=== PATIENT | female | born 1935 | race Caucasian/White ===

== ENCOUNTER 2016-06-23 09:26 | Inpatient (IN) ==
[2016-06-23] MEDS ORDERED: Ondansetron 4 MG/2 ML VIAL IV ONE ×2 (09:33→10:10)
[2016-06-23] MEDS ORDERED: *HR* Morphine 2 MG/ML SYRINGE IV ONE ×2 (09:33→10:10)
--- NOTE | 2016-06-23 09:43 | Emergency Department Note ---
Disposition Clinical Impression: Fracture, humerus closed, shaft Qualifiers: Encounter type: initial encounter Fracture morphology: transverse Fracture alignment: displaced Laterality: left Qualified Code(s): S42.322A - Displaced transverse fracture of shaft of humerus, left arm, initial encounter for closed fracture Disposition: Admitted As Inpatient Condition: Good Forms: ED Satisfaction Letter Upper Extremity HPI - General Chief Complaint: ED Extremity Injury, Upper Stated Complaint: LEFT ARM INJURY Time Seen by Provider: 06/23/16 09:33 Source: patient Mode of arrival: EMS Limitations: no limitations Nursing Notes Reviewed: Yes Vital Signs Reviewed: Yes - History of Present Illness Injury Location: Left: arm Onset (ago): Just [employer]RATIVE [employer]ISTANT Other Injuries: none Place: other ([facility]) Pain Scale: 3 Improves with: immobilization Worsens with: movement of extremity, Palpation Context: fall Associated symptoms: Reports: denies other symptoms Treatments prior to arrival: cold therapy, splint - Related Data Home Medications Medication Instructions Recorded Confirmed Amlodipine Besylate 5 mg PO 04/05/16 Aspirin [Lo-Dose Aspirin EC] 81 mg PO 04/05/16 BuPROPion XL (24 HR) [Wellbutrin 150 mg PO 04/05/16 XL] Calcium Crb,Cit/D3/Min34/Joleen 1 each PO 04/05/16 [Citracal + Bone Density Tablet] Cetirizine HCl [Zyrtec] 10 mg PO 04/05/16 Cholecalciferol (Vitamin D3) 1,000 unit PO 04/05/16 [Vitamin D3] Clotrimazole 1% CRM [Lotrimin 1%] 1 appl TP BID 04/05/16 04/05/16 Esomeprazole Magnesium [Nexium] 20 mg PO 04/05/16 FLUoxetine HCl [PROzac] 20 mg PO DAILY 04/05/16 04/05/16 Fenofibrate [Tricor] 145 mg PO DAILY 04/05/16 04/05/16 Fluconazole [Diflucan] 150 mg PO DAILY 04/05/16 04/05/16 Folic Acid 1 mg PO DAILY 04/05/16 04/05/16 InFLIXimab [Remicade] 04/05/16 Ipratropium [place] 15 ml NS 04/05/16 Losartan/Hydrochlorothiazide 1 each PO 04/05/16 [Hyzaar 100-12.5 Tablet] Methotrexate [Otrexup] 2.5 mg PO 04/05/16 MethylPREDNISolone [Medrol] 2 mg PO 04/05/16 Multivitamin [Multivitamins] 1 each PO 04/05/16 Potassium Chloride [Klor-Con] 20 meq PO 04/05/16 Solifenacin Succinate [Vesicare] 5 mg PO 04/05/16 Zolpidem [Ambien] 10 mg PO HS 04/05/16 04/05/16 Previous Rx's Medication Instructions Recorded HYDROcodone/Acet 5/325 mg [[place] 1 tab PO Q6H PRN #10 tab 04/05/16 5-325 mg] Allergies Allergy/AdvReac Type Severity Reaction Status Date / Time fluticasone [From Flonase] Allergy Nose Bleed Verified 11/07/14 11:29 Minocycline [From Minocin] Allergy Hives Verified 11/07/14 11:29 Sulfa (Sulfonamide Allergy Hives Verified 11/07/14 11:29 Antibiotics) trazodone [From Desyrel] Allergy Hives Verified 11/07/14 11:29 alendronate sodium AdvReac Gastrointestinal Verified 11/07/14 11:29 [From Fosamax] Upset celecoxib [From Celebrex] AdvReac Anxiety Verified 11/07/14 11:29 cyanocobalamin (vitamin B12) AdvReac Gastrointestinal Verified 11/07/14 11:29 [From Foltx] Upset folic acid [From Foltx] AdvReac Gastrointestinal Verified 11/07/14 11:29 Upset levomefolate calcium AdvReac Gastrointestinal Verified 11/07/14 11:29 [From Foltx] Upset pyridoxine [From Foltx] AdvReac Gastrointestinal Verified 11/07/14 11:29 Upset All systems ED: reviewed and negative except as stated. Constitutional: Denies: fever, chills Respiratory: Denies: cough Gastrointestinal: Denies: nausea, vomiting Past Medical History - Past Medical History Source: patient, old records reviewed, nursing notes reviewed Medical history: Reports: arthritis, GERD, hyperlipidemia, hypertension Surgical history: Reports: non-contributory Psychiatric history: Reports: anxiety - Social History Smoking Status: Never smoker Smokeless Tobacco Status: No Alcohol use: Reports: rarely Drug use: Reports: none Physical Exam - General Limitations: no limitations General appearance: alert, in no apparent distress - Head Head exam: atraumatic, normocephalic, normal inspection - Eye Eye exam: Present: normal appearance, PERRL, EOMI - Expanded Eye Exam Pupils: Left: reactive - ENT ENT exam: normal exam, normal oropharynx, mucous membranes moist - Expanded ENT Exam External ear exam: Present: normal external inspection Mouth exam: Present: normal external inspection Teeth exam: Present: normal inspection Throat exam: Present: normal inspection - Neck Neck exam: Present: normal inspection, full ROM, trachea midline - Chest Chest inspection: Present: normal inspection, symmetric chest wall rise - Respiratory Respiratory exam: Present: normal lung sounds bilaterally - Cardiovascular Cardiovascular exam: Present: regular rate, normal rhythm, normal heart sounds - Abdominal Exam Abdominal exam: Present: soft, Non-Tender. Absent: tenderness, distention, guarding, rebound, rigidity - Extremities Exam Extremities exam: Present: normal inspection, full ROM. Absent: tenderness, pedal edema - Expanded Upper Extremity Exam Shoulder exam: Present: normal inspection, full ROM Arm exam: Present: tenderness, swelling, deformity (left humerus) Elbow exam: Present: normal inspection, full ROM Forearm/Wrist exam: Present: normal inspection, full ROM Hand exam: Present: normal inspection, full ROM Vascular exam: Normal: capillary refill, radial pulse - Expanded Lower Extremity Exam Hip/Pelvis exam: Present: normal inspection, full ROM Upper leg exam: Present: normal inspection, full ROM Knee exam: Present: normal inspection, full ROM Lower leg exam: Present: normal inspection, full ROM Ankle exam: Present: normal inspection, full ROM Foot/toe exam: Present: normal inspection, full ROM Neurovascular/Tendon exam: Absent: motor deficit, sensory deficit, tendon deficit - Back Exam Back exam: Present: normal inspection, full ROM. Absent: tenderness - Neurological Exam Neurological exam: Present: alert, oriented X3 - Expanded Neurological Exam Patient oriented to: Present: person, place, time Coma Scale Eye Opening: Spontaneous Coma Scale Motor Response: Obeys Commands Coma Scale Verbal Response: Oriented Coma Scale Total: 15 - Psychiatric Psychiatric exam: Present: normal affect, normal mood - Skin Skin exam: Present: warm, dry, intact, normal color Course Vital Signs Temperature 98.0 F 06/23/16 09:28 Pulse Rate 68 06/23/16 09:28 Respiratory Rate 18 06/23/16 09:28 Blood Pressure 138/63 06/23/16 09:28 O2 Sat by Pulse Oximetry 99 06/23/16 09:28 Temperature 98.0 F 06/23/16 09:28 Pulse Rate 69 06/23/16 10:17 Respiratory Rate 16 06/23/16 10:17 Blood Pressure 139/74 06/23/16 10:17 O2 Sat by Pulse Oximetry 98 06/23/16 10:17 Oxygen Delivery Oxygen Delivery Room Air Extremity Injury, Upper - Differential Diagnosis Differential Diagnosis: Likely: sprain and strain of wrist, fracture, dislocation, foreign body - Medical Records Medical records reviewed: Yes I reviewed the patient's medical records. - Radiology Data Radiology results reviewed: Yes I reviewed the patient's radiology results.
[2016-06-23 11:05] LABS: Basophils % 0.4 %; Eosinophils # 0.1 K/mcL (0.0-0.6); Eosinophils % 1.1 %; Hematocrit 33.2 % (35.3-44.9); Hemoglobin 10.6 g/dL (11.5-15.4); Immature Granulocytes % 0.5 % (0-4); Immature Platelets 3.4 % (1.1-6.1); Lymphocytes # 1.3 K/mcL (0.6-4.6); Lymphocytes % 12.8 %; Mean Corpuscular HGB Conc 31.9 g/dL (31.6-35.5); Mean Corpuscular Hemoglobin 31.4 pg (28.0-33.3); Mean Corpuscular Volume 98.2 fL (83.0-100.0); Mean Platelet Volume 10.1 fL (9.4-12.4); Monocytes # 0.9 K/mcL (0.0-1.3); Monocytes % 8.3 %; Neutrophils # 7.8 K/mcL (1.6-8.9); Platelet Count 186 K/mcL (140-400); Red Blood Count 3.38 M/mcL (3.82-4.97); Red Cell Distribution Width 13.7 % (11.5-14.5); Segmented Neutrophils % 76.9 %
[2016-06-23 11:13] LABS: Prothrombin Time 10.5 Seconds (9.4-12.1)
[2016-06-23 11:16] LABS: Activated Partial Thrombo Time 25.6 Seconds (26.0-36.0)
[2016-06-23 11:18] LABS: Calcium 8.7 mg/dL (8.6-10.8); Potassium 4.1 mEq/L (3.5-4.5)
[2016-06-23] MEDS ORDERED: Naloxone 0.4 MG/ML INJ IVP PRN (11:52)
[2016-06-23] MEDS ORDERED: MOM Conc 10 ML UD.LIQ PO PRN (11:52)
[2016-06-23] MEDS ORDERED: Ondansetron 4 MG/2 ML VIAL IVP PRN (11:52)
[2016-06-23] MEDS ORDERED: Mag Hydrox/Al Hydrox/Simeth 30 ML UDC PO PRN (11:52)
[2016-06-23] MEDS: 0.9 % Sodium Chloride 1,000 ML IVC SCH ×2 (12:00→16:39)
--- NOTE | 2016-06-23 13:34 | Internal Med History&Physical ---
Date of Encounter: 06/23/16 Time of Encounter: 13:00 Assessment and Plan (1) Fracture, humerus closed, shaft Current visit: Yes Status: Acute Pt with acute fracture s/p fall - no LOC. Admit. Ortho consult. Pain control. NPO midnight for planned OR tomorrow. Pt is moderate (immunocompromised, RA) but acceptable risk for a moderate risk surgery. Qualifiers: Encounter type: initial encounter Fracture morphology: transverse Fracture alignment: displaced Laterality: left Qualified Code(s): S42.322A - Displaced transverse fracture of shaft of humerus, left arm, initial encounter for closed fracture (2) Rheumatoid arthritis Current visit: Yes Status: Chronic Pt is immunocompromised on MTX and Remicade. Continue home PO meds at this time. Qualifiers: Rheumatoid arthritis location: multiple sites Rheumatoid factor presence: unspecified presence Qualified Code(s): M06.9 - Rheumatoid arthritis, unspecified (3) Immunocompromised state Current visit: Yes Status: Chronic Related to immunosuppressive drugs (4) HTN (hypertension) Current visit: Yes Status: Acute Continue home PO meds and monitor. Qualifiers: Hypertension type: essential hypertension Qualified Code(s): I10 - Essential (primary) hypertension (5) Dysphagia Current visit: Yes Status: Chronic Most likely related to esophageal stricture or dysmotility. Has had dilatation before. Monitor for post op issues. Qualifiers: Dysphagia type: esophageal phase Qualified Code(s): R13.14 - Dysphagia, pharyngoesophageal phase (6) CKD (chronic kidney disease) stage 3, GFR 30-59 ml/min Current visit: Yes Status: Chronic Monitor renal function and avoid nephrotoxins (7) GERD with esophagitis Current visit: Yes Status: Chronic Continue home meds (8) Anemia, chronic disease Current visit: Yes Status: Chronic Monitor H/H. (9) HLD (hyperlipidemia) Current visit: Yes Status: Chronic Continue home meds Qualifiers: Hyperlipidemia type: mixed hyperlipidemia Qualified Code(s): E78.2 - Mixed hyperlipidemia Internal Medicine - H&P: HPI Chief complaint: Arm pain s/p fall Admitted From: Emergency Dept Plans for Post Hospital Care: Home History of present illness: Ms. Gudino is a 81 year old female with hx of rheumatoid arthritis brought to ED by EMS after a fall. She was going up the steps at [employer] and missed the top step and fell on her L side. She had pain in her L arm and was found to have a humeral fracture. Denies LOC or any other symptoms. No palpitations or near syncope. Currently her only issue is pain is her arm and slight pain in her L sacroiliac area. She denies chest pain or dyspnea with exertion. Says she felt like she had a TIA a few weeks ago - describes as a fleeting feeling in her head with no associated neurologic symptoms otherwise. She does take baby ASA daily. No hx of cardiac disease or LA. Does have HTN but says well controlled. Has had multiple surgeries in the past with no issues. Past Med Surg Social Fam HX - Past Medical History Attestation: Yes The following information was validated with the patient. Source: patient Medical history: arthritis, GERD, hyperlipidemia, hypertension, RA, renal disease (CKD 3), thyroid disease (goiter) Psychiatric history: anxiety, depression - Past Surgical History Surgical History: cholecystectomy, hip replacement, hysterectomy, orthopedic, other, other (Many orthopedic surgeries; tonsillectomy; esophageal dilatation) - Social History Smoking Status: Never smoker Smokeless Tobacco Status: No Alcohol use: rarely Drug use: none - Family History Mother Living Status: Hx Family Cardiac Disorders: Yes Hx Family Endocrine Disorder: Yes (DM) Father Living Status: Hx Family Cancer: Yes (kidney?) Brother Living Status: Still Living Hx Family Cardiac Disorders: Yes Hx Family Endocrine Disorder: Yes (DM) Internal Medicine - H&P: Meds Amlodipine Besylate 5 mg PO DAILY 04/05/16 [History] Aspirin [Lo-Dose Aspirin EC] 81 mg PO DAILY 04/05/16 [History] BuPROPion XL (24 HR) [Wellbutrin XL] 150 mg PO DAILY 04/05/16 [History] Calcium Crb,Cit/D3/Min34/Joleen [Citracal + Bone Density Tablet] 1 tab PO DAILY 04/05/16 [History] Cholecalciferol (Vitamin D3) [Vitamin D3] 3,000 unit PO DAILY 04/05/16 [History] Esomeprazole Magnesium [Nexium] 20 mg PO BID 04/05/16 [History] FLUoxetine HCl [PROzac] 20 mg PO BID 04/05/16 [History] Fenofibrate [Tricor] 145 mg PO DAILY 04/05/16 [History] Folic Acid 1 mg PO DAILY 04/05/16 [History] InFLIXimab [Remicade] 100 mg IV Q8W 04/05/16 [History] Methotrexate [Otrexup] 2.5 mg PO AD 04/05/16 [History] MethylPREDNISolone [Medrol] 2 mg PO DAILY 04/05/16 [History] Multivitamin [Multivitamins] 1 cap PO DAILY 04/05/16 [History] Potassium Chloride [Klor-Con] 20 meq PO DAILY 04/05/16 [History] Solifenacin Succinate [Vesicare] 5 mg PO DAILY 04/05/16 [History] Zolpidem [Ambien] 10 mg PO HS 04/05/16 [History] Losartan/Hydrochlorothiazide [Hyzaar 100-25 Tablet] 1 tab PO DAILY 06/23/16 [ History] Allergies fluticasone [From Flonase] Allergy (Verified 11/07/14 11:29) Nose Bleed Minocycline [From Minocin] Allergy (Verified 11/07/14 11:29) Hives Sulfa (Sulfonamide Antibiotics) Allergy (Verified 11/07/14 11:29) Hives trazodone [From Desyrel] Allergy (Verified 11/07/14 11:29) Hives alendronate sodium [From Fosamax] Adverse Reaction (Verified 11/07/14 11:29) Gastrointestinal Upset celecoxib [From Celebrex] Adverse Reaction (Verified 11/07/14 11:29) Anxiety cyanocobalamin (vitamin B12) [From Foltx] Adverse Reaction (Verified 11/07/14 11 :29) Gastrointestinal Upset folic acid [From Foltx] Adverse Reaction (Verified 11/07/14 11:29) Gastrointestinal Upset levomefolate calcium [From Foltx] Adverse Reaction (Verified 11/07/14 11:29) Gastrointestinal Upset pyridoxine [From Foltx] Adverse Reaction (Verified 11/07/14 11:29) Gastrointestinal Upset All Systems PM: A 10-system review of systems was performed and is negative for pertinent findings except as documented above in the HPI. - Constitutional Constitutional: falls, no chills, no fatigue - EENT Eyes: no blurry vision, no dry eye, no loss of vision Nose, mouth and throat: no dry mouth, no mouth lesions - Cardiovascular Cardiovascular ROS IM: no chest pain, no dyspnea, no dyspnea on exertion, no edema, no irregular heart rhythm, no orthopnea, no palpitations - Respiratory Respiratory: no cough, no dyspnea, no hemoptysis, no dyspnea on exertion, no wheezing - Gastrointestinal Gastrointestinal: dysphagia, no abdominal pain, no constipation, no hematemesis , no hematochezia, no melena - Genitourinary Genitourinary: no difficulty urinating, no dysuria, no urinary frequency, no urinary urgency - Musculoskeletal Musculoskeletal ROS IM: joint swelling, limited range of motion, no arthralgias - Integumentary Integumentary IM: no erythema, no rash - Neurological Neurological ROS: disequilibrium (Transient episode), no abnormal gait, no memory loss, no numbness, no paresthesias - Psychiatric Psychiatric: no anxiety, no depression - Endocrine Endocrine IM: no flushing, no heat intolerance - Hematologic/Lymphatic Hematologic/Lymphatic: no easy bleeding - Allergic/Immunologic Allergic/Immunologic: no itchy eyes, no wheezing - Constitutional Vitals: Temp Pulse Resp BP Pulse Ox 97.7 F 69 18 141/76 98 06/23/16 12:03 06/23/16 10:17 06/23/16 12:03 06/23/16 12:03 06/23/16 10:17 General appearance: Present: cooperative, A&O X 3, pleasant, answers questions appropriately - Head Head exam: Present: atraumatic, normocephalic - Eye Eye exam: Present: EOMI, normal appearance, PERRL, conjuntiva pink - ENT ENT exam: Present: mucous membranes moist - Neck Neck exam general surgery: Present: supple. Absent: lymphadenopathy - Respiratory Respiratory exam: Present: decreased breath sounds, CTAB. Absent: rhonchi, wheezes - Cardiovascular Cardiovascular exam: Present: RRR. Absent: +S4, systolic murmur - GI/Abdominal GI/Abdominal exam: Present: soft. Absent: tenderness - Extremities Exam Extremities exam: Present: warm (Evidence of RA; LUE in sling. Pulse present) - Neurological Exam Neurological exam: Present: alert, CN II-XII intact, oriented X3, no focal deficits - Psychiatric Psychiatric exam: Present: normal affect, normal mood - Skin Skin exam: Present: dry, warm. Absent: rash Internal Med - H&P Results - Labs CBC & Chem 7: 06/23/16 10:48 06/23/16 10:48
[2016-06-23] MEDS: *HR* Morphine 2 MG/ML SYRINGE IVP PRN ×2 (13:54→18:57)
[2016-06-23] MEDS: Acetaminophen 325 MG TABLET PO PRN ×2 (16:09→22:16)
[2016-06-24] MEDS: *HR* Morphine 2 MG/ML SYRINGE IVP PRN ×4 (00:12→15:13)
[2016-06-24] MEDS: 0.9 % Sodium Chloride 1,000 ML IVC SCH ×4 (01:00→22:04)
[2016-06-24 05:35] LABS: Hemoglobin 9.8 g/dL (11.5-15.4); Mean Corpuscular HGB Conc 32.7 g/dL (31.6-35.5); Mean Corpuscular Hemoglobin 31.9 pg (28.0-33.3); Mean Corpuscular Volume 97.7 fL (83.0-100.0); Mean Platelet Volume 10.4 fL (9.4-12.4); Platelet Count 170 K/mcL (140-400); Red Blood Count 3.07 M/mcL (3.82-4.97); Red Cell Distribution Width 13.8 % (11.5-14.5)
[2016-06-24 05:48] LABS: Magnesium 1.4 mg/dL (1.6-2.6)
[2016-06-24] MEDS ORDERED: *HR* Enoxaparin 30 MG/0.3 ML SYRINGE SQ SCH (06:00)
--- NOTE | 2016-06-24 06:22 | Electrocardiograph Report ---
[place] [id number] Test Date: 2016-06-23 Pat Name: Cheryle Gudino Department: 103 Room: 3A11 Gender: F [employer]o Erector: [place] : 1935 Requested By: Mello Hidalgo Order Number: [id number] Reading MD: Randal Bliss MD Measurements Intervals [place] Rate: 85 P: 37 CO: 195 QRS: -25 QRSD: 103 T: 0 QT: 348 QTc: 390 Interpretive Statements SINUS RHYTHM LOW QRS VOLTAGE IN PRECORDIAL LEADS MODERATE VOLTAGE CRITERIA FOR LVH Poor R wave progression Electronically Signed On 06-24-2016 6:20:58 EDT by Randal Bliss MD
--- NOTE | 2016-06-24 10:01 | Internal Med Progress Note ---
Date of Encounter: 06/24/16 Time of Encounter: 08:15 - Assessment and plan (1) Fracture, humerus closed, shaft Current Visit: Yes Status: Acute Assessment and plan: Awaiting orthopedics evaluation. Possible surgery. Continue supportive care. Receiving intravenous morphine for pain. Moderate risk for complications. DVT prophylaxis with Lovenox Qualifiers: Encounter type: initial encounter Fracture morphology: transverse Fracture alignment: displaced Laterality: left Qualified Code(s): S42.322A - Displaced transverse fracture of shaft of humerus, left arm, initial encounter for closed fracture (2) Rheumatoid arthritis Current Visit: Yes Status: Chronic Assessment and plan: Will resume home medications for this condition. Patient is on Medrol, methotrexate Qualifiers: Rheumatoid arthritis location: multiple sites Rheumatoid factor presence: unspecified presence Qualified Code(s): M06.9 - Rheumatoid arthritis, unspecified (3) HTN (hypertension) Current Visit: Yes Status: Chronic Assessment and plan: Blood pressure is well controlled Qualifiers: Hypertension type: essential hypertension Qualified Code(s): I10 - Essential (primary) hypertension (4) Dysphagia Current Visit: Yes Status: Chronic Assessment and plan: Currently nothing by mouth for possible surgery. Reevaluate when patient is able to eat Qualifiers: Dysphagia type: esophageal phase Qualified Code(s): R13.14 - Dysphagia, pharyngoesophageal phase (5) CKD (chronic kidney disease) stage 3, GFR 30-59 ml/min Current Visit: Yes Status: Chronic Assessment and plan: GFR is at baseline. Avoid nephrotoxic agents (6) GERD with esophagitis Current Visit: Yes Status: Chronic Assessment and plan: Continue Prilosec (7) Anemia, chronic disease Current Visit: Yes Status: Chronic Assessment and plan: Hemoglobin 9.8 today. We will monitor closely and transfuse if necessary. - Subjective Interval history: Patient is feeling better today. Continues to have pain in her left upper extremity. This is controlled when she receives pain medications. Awaiting evaluation by orthopedics and possible surgery later today. - Constitutional Vitals: Temp Pulse Resp BP Pulse Ox 98.6 F 75 16 117/71 97 06/24/16 07:56 06/24/16 07:56 06/24/16 07:56 06/24/16 07:56 06/24/16 07:56 General appearance: Present: cooperative, mild distress, A&O X 3, pleasant, answers questions appropriately - Respiratory Respiratory exam: Present: CTAB. Absent: accessory muscle use, rales, rhonchi, wheezes - Cardiovascular Cardiovascular exam: Present: RRR, +S1, +S2. Absent: diastolic murmur, gallop, rubs, systolic murmur - GI/Abdominal GI/Abdominal exam: Present: normal bowel sounds, soft, no peritoneal signs. Absent: distended, tenderness - Extremities Exam Extremities exam: Present: warm, radial pulses palpable and symetrical. Absent : calf tenderness, cyanotic, pedal edema Additional comments: Left upper extremity in sling. - Neurological Exam Neurological exam: Present: alert, oriented X3, no focal deficits. Absent: facial droop, speech deficit - Skin Skin exam: Present: dry, intact Internal Medicine: Result - Labs CBC & Chem 7: 06/24/16 04:04 06/24/16 04:04 Labs: Short CBC 06/24/16 Range/Units 04:04 WBC 9.5 (4.3-11.1) K/mcL Hgb 9.8 L (11.5-15.4) g/dL Hct 30.0 L (35.3-44.9) % Plt Count 170 (140-400) K/mcL BMP 06/24/16 04:04 Sodium 136 Potassium 4.0 Chloride 106 Carbon Dioxide 21 BUN 25 H Creatinine 1.20 H Glucose 111 H Calcium 8.0 L - ABG Interpretation ABG results: PT/INR, D-dimer PT 10.5 Seconds (9.4-12.1) 06/23/16 10:48 - VTE Documentation of Mechanical Device: Graduated compression elastic hosiery Consult Discharge Plan - Plan Referrals: Cally Browne MD [Primary Care Provider] - - Attending Attestation This document has been at least partially created by [employer] recognition technology by Dr. Cueto. Errors in grammar, wording or other phrases may exist. If errors are found after the documentation is signed, they will be addressed individually in the addendum section of this document when appropriate.
[2016-06-24] MEDS ORDERED: *HR* Methotrexate 2.5 MG TABLET PO SCH ×2 (10:15→20:03)
--- NOTE | 2016-06-24 14:18 | Anesthesia Evaluation PreOp ---
Date of Encounter: 06/24/16 Time of Encounter: 14:16 - Past History Planned Operation: orif l humerus Cardiac History: HTN, Hyperlipidemia, Other (echo 11/05: ef 65, nl rv. 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: TIA (6 ,pd shp), Other (anxiety/depression) Other Medical History: Renal (ckd), Thyroid (goiter), GERD, Other (RA, dysphagia ) Anesthesia History: No Prior Anesthetic Complications, Past Anesthesia ( cholecyst, gina, hysterect, tonsils, egd, *many ortho procedures) Alcohol Use: rarely Drug use: none Medications and Allergies Amlodipine Besylate 5 mg PO DAILY 04/05/16 [History] Aspirin [Lo-Dose Aspirin EC] 81 mg PO DAILY 04/05/16 [History] BuPROPion XL (24 HR) [Wellbutrin XL] 150 mg PO DAILY 04/05/16 [History] Calcium Crb,Cit/D3/Min34/Joleen [Citracal + Bone Density Tablet] 1 tab PO DAILY 04/05/16 [History] Cholecalciferol (Vitamin D3) [Vitamin D3] 3,000 unit PO DAILY 04/05/16 [History] Esomeprazole Magnesium [Nexium] 20 mg PO BID 04/05/16 [History] FLUoxetine HCl [PROzac] 20 mg PO BID 04/05/16 [History] Fenofibrate [Tricor] 145 mg PO DAILY 04/05/16 [History] Folic Acid 1 mg PO DAILY 04/05/16 [History] InFLIXimab [Remicade] 100 mg IV Q8W 04/05/16 [History] Methotrexate [Otrexup] 2.5 mg PO AD 04/05/16 [History] MethylPREDNISolone [Medrol] 2 mg PO DAILY 04/05/16 [History] Multivitamin [Multivitamins] 1 cap PO DAILY 04/05/16 [History] Potassium Chloride [Klor-Con] 20 meq PO DAILY 04/05/16 [History] Solifenacin Succinate [Vesicare] 5 mg PO DAILY 04/05/16 [History] Zolpidem [Ambien] 10 mg PO HS 04/05/16 [History] Losartan/Hydrochlorothiazide [Hyzaar 100-25 Tablet] 1 tab PO DAILY 06/23/16 [ History] Allergies fluticasone [From Flonase] Allergy (Verified 11/07/14 11:29) Nose Bleed Minocycline [From Minocin] Allergy (Verified 11/07/14 11:29) Hives Sulfa (Sulfonamide Antibiotics) Allergy (Verified 11/07/14 11:29) Hives trazodone [From Desyrel] Allergy (Verified 11/07/14 11:29) Hives alendronate sodium [From Fosamax] Adverse Reaction (Verified 11/07/14 11:29) Gastrointestinal Upset celecoxib [From Celebrex] Adverse Reaction (Verified 11/07/14 11:29) Anxiety cyanocobalamin (vitamin B12) [From Foltx] Adverse Reaction (Verified 11/07/14 11 :29) Gastrointestinal Upset folic acid [From Foltx] Adverse Reaction (Verified 11/07/14 11:29) Gastrointestinal Upset levomefolate calcium [From Foltx] Adverse Reaction (Verified 11/07/14 11:29) Gastrointestinal Upset pyridoxine [From Foltx] Adverse Reaction (Verified 11/07/14 11:29) Gastrointestinal Upset - Meds/Allergy Pre-op Review Medications Reviewed: Yes Allergies Reviewed: Yes Beta Blockers on Current Med List: No Anesthesia Results - Labs 06/24/16 04:04 06/24/16 04:04 - Imaging EKG: report reviewed (sr) Anesthesia Exam Vital Signs/O2 Sat/Glucose, Most Current Temp Pulse Resp BP Pulse Ox 06/24/16 11:00 98.4 F 75 16 106/51 95 Height: 1.7 Weight: 95 NPO (# of Hours): >8 - HEENT Pupil (Motor): Pupils equal, EOMI Mallampati: II Teeth: Edentulous Oral Opening: Greater than 3 - [employer] UP OPERATOR LOC: Oriented [employer] SET UP OPERATOR Motor: Normal RUE, Normal LUE, Normal RLE, Normal LLE, Normal Face [employer] OPERATOR Sensory: Normal: RUE, LUE, RLE, LLE, Face - Cardiac Rhythm: Regular Murmur: None - Pulmonary Breath Sounds: bilateral Clear Respiratory Effort: Symmetrical Anesthesia Assess/Plan ASA Score: 3 Modified Bradley Scale for Level of Consciousness: Cooperative, oriented, and tranquil Anesthetic Plan: General, Regional Monitoring Plan: Standard Monitors Recovery Plan: PACU
[2016-06-24] MEDS ORDERED: *HR* Midazolam HCl 2 MG/2 ML VIAL ONE (16:58)
--- NOTE | 2016-06-24 17:14 | Anesthesia Procedures ---
Date of Encounter: 06/24/16 Time of Encounter: 17:12 Procedures: Anesthesia - Nerve Block Procedure Date: 06/24/16 Time: 17:13 Allergies/Adv Reactions: see chart for full details Pre-op Diagnosis: L humerus fx Surgical Procedure: L humerus orif Checklist: Correct Patient Identifier, Correct procedure, History checked Correct side: Left Blood Thinner: No Monitor Applied: EKG, BP, Pulse Oximetry Supplemental Oxygen via Nasal Cannula (L/min): 2 Sedation: Versed (mg): 2 Indication: Primary Anesthesia Block Type: Supraclavicular (20), Other (scp/icb 5/5) Catheter placed: No Sterile Technique: Yes Ultrasound used: Yes Anatomy identified: Yes Visual spread of Local: Yes Neuro Stimulation: No Blood on Needle Aspiration: No Smooth Injection of Local: Yes Pain with Injection of Local: No Prep: Chlorhexadine Needle: 22 x 50 mm Stimuplex Local: Other (0.5% bupivicaine) Volume (cc): 30 Number of Attempts: 1 Complications: None/effective block Vitals: see rn note
[2016-06-24] MEDS ORDERED: Propofol 500 MG/50 ML INFUS..BTL ONE (18:03)
[2016-06-24] MEDS ORDERED: *HR* Propofol 200 MG/20 ML VIAL IVP ONE (18:13)
[2016-06-24] MEDS ORDERED: Lidocaine -MPF 2% 2 ML VIAL ONE (18:13)
[2016-06-24] MEDS ORDERED: *HR* Phenylephrine 10 MG/ML VIAL ONE (18:44)
--- NOTE | 2016-06-24 18:53 | Orthopedic Operative Note ---
Date of procedure: 06/24/16 Pre-op diagnosis: Displaced left humeral shaft fracture Post-op diagnosis: same Procedure: Procedure: Left open reduction internal fixation Humerus Estimated blood loss: 50 cc Hardware: Synthes 6 hole narrow Large Frag 4.5 LCDCP locking Plate, 3 4.5 cortical screws, 3 5.0 Locking screws Operative procedure: The patient was brought to the operating room and placed on the operating room table. After general anesthesia was administered the operative arm was prepped and draped in the sterile surgical fashion The patient received IV antibiotics prior to skin incision. A standard anterior lateral approach is made to the humerus, the incision is made to the skin and subcutaneous tissue. Hemostasis was obtained with Bovie cautery. Using careful blunt dissection the interval between the brachialis and the brachial radialis was developed. The radial nerve was identified and protected. The brachialis was split and the fracture site was exposed. The fracture was irrigated of fracture hematoma. Fracture was reduced and held in place with bone holding forceps. A 6-hole narrow 4.5 LCDCP locking plate was approximated to the anterior lateral surface, it was fixed initially compression on either side of the fracture. After which fixation was completed with a combination of compression and locking screws. Rec visualization of the hardware was found to be acceptable as well as the reduction. This was confirmed with [place] B.. The wound was irrigated and the interval was closed with a running #1 PDS suture. The subcutaneous tissues irrigated and closed deep with #1 PDS suture superficially with 0 PDS suture and skin was closed with jumana. The patient was placed in a sterile dressing, posterior splint. The patient was extubated, and then transferred to the recovery room in stable condition. Anesthesia: GETA Surgeon: Abdelrahman Catalan Condition: stable Disposition: PACU
--- NOTE | 2016-06-24 19:42 | Orthopedic Consult Note ---
Date of Encounter: 06/24/16 Time of Encounter: 12:30 Assessment and Plan (1) Fracture, humerus closed, shaft Current Visit: Yes Status: Acute Patient sustained a mid-shaft left humerus fracture after a fall on Friday. She is NV intact distally - Radial nerve sensation and motor skills intact. Surgical optimization needed. Consent reviewed, plan for a Left Humerus ORIF today with . NWB to LUE. Continue in brace. Continue with pain control. NPO has reviewed and agrees with this plan. Qualifiers: Encounter type: initial encounter Fracture morphology: transverse Fracture alignment: displaced Laterality: left Qualified Code(s): S42.322A - Displaced transverse fracture of shaft of humerus, left arm, initial encounter for closed fracture (2) Rheumatoid arthritis Current Visit: Yes Status: Chronic Qualifiers: Rheumatoid arthritis location: multiple sites Rheumatoid factor presence: unspecified presence Qualified Code(s): M06.9 - Rheumatoid arthritis, unspecified (3) HTN (hypertension) Current Visit: Yes Status: Chronic Qualifiers: Hypertension type: essential hypertension Qualified Code(s): I10 - Essential (primary) hypertension (4) CKD (chronic kidney disease) stage 3, GFR 30-59 ml/min Current Visit: Yes Status: Chronic (5) Anemia, chronic disease Current Visit: Yes Status: Chronic (6) HLD (hyperlipidemia) Current Visit: Yes Status: Chronic Qualifiers: Hyperlipidemia type: mixed hyperlipidemia Qualified Code(s): E78.2 - Mixed hyperlipidemia History of Present Illness Chief complaint: Fall on 06/23/16 HPI: Ms. Gudino is a 81 year old female, hx of rheumatoid arthritis brought to ED by EMS after a fall. She was going up the steps at [employer] and missed the top step and fell on her L side. Admitted to pain to her left arm, XRAYS revealed Mid-- shaft humerus fracture. Denies N/T or radiation of pain. She is able to resin remover her fingers and wrist without difficulty. Denies LOC or any other symptoms. Denies syncope. She denies chest pain or dyspnea with exertion. She does take baby ASA daily. No hx of cardiac disease or KS. Past Med Surg Social Fam HX - Past Medical History Medical history: arthritis, GERD, hyperlipidemia, hypertension, RA, renal disease (CKD 3), thyroid disease (goiter) Psychiatric history: anxiety, depression - Past Surgical History Surgical History: cholecystectomy, hip replacement, hysterectomy, orthopedic, other, other (Many orthopedic surgeries; tonsillectomy; esophageal dilatation) - Social History Smoking Status: Never smoker Smokeless Tobacco Status: No Alcohol use: rarely Drug use: none - Family History Mother Living Status: Hx Family Cardiac Disorders: Yes Hx Family Endocrine Disorder: Yes (DM) Father Living Status: Hx Family Cancer: Yes (kidney?) Brother Living Status: Still Living Hx Family Cardiac Disorders: Yes Hx Family Endocrine Disorder: Yes (DM) Medications and Allergies Amlodipine Besylate 5 mg PO DAILY 04/05/16 [History] Aspirin [Lo-Dose Aspirin EC] 81 mg PO DAILY 04/05/16 [History] BuPROPion XL (24 HR) [Wellbutrin XL] 150 mg PO DAILY 04/05/16 [History] Calcium Crb,Cit/D3/Min34/Joleen [Citracal + Bone Density Tablet] 1 tab PO DAILY 04/05/16 [History] Cholecalciferol (Vitamin D3) [Vitamin D3] 3,000 unit PO DAILY 04/05/16 [History] Esomeprazole Magnesium [Nexium] 20 mg PO BID 04/05/16 [History] FLUoxetine HCl [PROzac] 20 mg PO BID 04/05/16 [History] Fenofibrate [Tricor] 145 mg PO DAILY 04/05/16 [History] Folic Acid 1 mg PO DAILY 04/05/16 [History] InFLIXimab [Remicade] 100 mg IV Q8W 04/05/16 [History] Methotrexate [Otrexup] 2.5 mg PO AD 04/05/16 [History] MethylPREDNISolone [Medrol] 2 mg PO DAILY 04/05/16 [History] Multivitamin [Multivitamins] 1 cap PO DAILY 04/05/16 [History] Potassium Chloride [Klor-Con] 20 meq PO DAILY 04/05/16 [History] Solifenacin Succinate [Vesicare] 5 mg PO DAILY 04/05/16 [History] Zolpidem [Ambien] 10 mg PO HS 04/05/16 [History] Losartan/Hydrochlorothiazide [Hyzaar 100-25 Tablet] 1 tab PO DAILY 06/23/16 [ History] Allergies fluticasone [From Flonase] Allergy (Verified 11/07/14 11:29) Nose Bleed Minocycline [From Minocin] Allergy (Verified 11/07/14 11:29) Hives Sulfa (Sulfonamide Antibiotics) Allergy (Verified 11/07/14 11:29) Hives trazodone [From Desyrel] Allergy (Verified 11/07/14 11:29) Hives alendronate sodium [From Fosamax] Adverse Reaction (Verified 11/07/14 11:29) Gastrointestinal Upset celecoxib [From Celebrex] Adverse Reaction (Verified 11/07/14 11:29) Anxiety cyanocobalamin (vitamin B12) [From Foltx] Adverse Reaction (Verified 11/07/14 11 :29) Gastrointestinal Upset folic acid [From Foltx] Adverse Reaction (Verified 11/07/14 11:29) Gastrointestinal Upset levomefolate calcium [From Foltx] Adverse Reaction (Verified 11/07/14 11:29) Gastrointestinal Upset pyridoxine [From Foltx] Adverse Reaction (Verified 11/07/14 11:29) Gastrointestinal Upset All Systems Reviewed: A 10-system review of systems was performed and is negative for pertinent findings except as documented above in the HPI. - Constitutional Constitutional: as per HPI, no fever(s), no frequent falls, no weakness - Cardiovascular Cardiovascular: no chest pain, no dyspnea, no syncope - Respiratory Respiratory: other, no cough, no dyspnea - Musculoskeletal Musculoskeletal: abnormal gait, joint swelling, limited range of motion, radiating pain into limb, stiffness, no numbness, no tingling Physical Exam - Constitutional Vitals: Temp Pulse Resp BP Pulse Ox 98.3 F 71 14 126/58 99 06/24/16 14:34 06/24/16 17:15 06/24/16 17:15 06/24/16 17:15 06/24/16 17:15 - Fracture left arm Location of fracture: Left Humerus fracture Appearance: swelling, other Compartments: soft Distal extremity neurovascularly intact: Yes Proximal joint involvement: No Distal joint involvement: No Results - Labs Result Diagrams: 06/24/16 04:04 06/24/16 04:04 Labs: Abnormal lab results RBC 3.07 M/mcL (3.82-4.97) L 06/24/16 04:04 Hgb 9.8 g/dL (11.5-15.4) L 06/24/16 04:04 Hct 30.0 % (35.3-44.9) L 06/24/16 04:04 APTT 25.6 Seconds (26.0-36.0) L 06/23/16 10:48 BUN 25 mg/dL (7-20) H 06/24/16 04:04 Creatinine 1.20 mg/dL (0.57-1.11) H 06/24/16 04:04 Est GFR ( Amer) 52 (> 60) L 06/24/16 04:04 Est GFR (Non-Af Amer) 43 (> 60) L 06/24/16 04:04 Glucose 111 mg/dL (70-99) H 06/24/16 04:04 POC Glucose 97 (58-89) H 06/24/16 12:10 Calcium 8.0 mg/dL (8.6-10.8) L 06/24/16 04:04 Magnesium 1.4 mg/dL (1.6-2.6) L 06/24/16 04:04 H & H 06/24/16 Range/Units 04:04 Hgb 9.8 L (11.5-15.4) g/dL Hct 30.0 L (35.3-44.9) % All other labs normal. Consult Discharge Plan - Plan Referrals: Cally Browne MD [Primary Care Provider] -
[2016-06-24] MEDS ORDERED: Naloxone 0.4 MG/ML INJ IVP PRN (20:03)
[2016-06-24] MEDS ORDERED: *HR* Morphine 2 MG/ML SYRINGE IVP PRN (20:03)
[2016-06-24] MEDS ORDERED: Ondansetron 4 MG/2 ML VIAL IVP PRN (20:03)
[2016-06-24] MEDS ORDERED: Temazepam 15 MG CAPSULE PO PRN (20:03)
[2016-06-24] MEDS ORDERED: Sennosides 8.6 MG TABLET PO PRN (20:03)
[2016-06-24] MEDS ORDERED: MOM Conc 10 ML UD.LIQ PO PRN (20:03)
[2016-06-24] MEDS ORDERED: Mag Hydrox/Al Hydrox/Simeth 30 ML UDC PO PRN (20:03)
[2016-06-24] MEDS ORDERED: FLUoxetine 20 MG CAPSULE PO SCH (21:00)
[2016-06-24] MEDS: FLUoxetine 20 MG CAPSULE PO SCH (21:48)
--- NOTE | 2016-06-24 22:08 | Anesthesia Evaluation Post Op ---
Date of Encounter: 06/24/16 Time of Encounter: 19:25 - Vital Signs Vital Signs: Last Vital Signs Temp 97.3 F L 06/24/16 21:28 Pulse 64 06/24/16 21:28 Resp 16 06/24/16 21:28 BP 115/64 06/24/16 21:28 Pulse Ox 99 06/24/16 21:28 - Lungs Lungs: Clear Ascult./Percussion - Airway Airway: Non-obstructed - Cardiovascular Baseline Rhythm - Mental Status Mental Status: Alert & Oriented, Answers Appropriately - Pain Pain Scale: 1 - Nausea Vomiting Nausea Vomiting: Not Present - Hydration Hydration: NPO - Discharge PostOp Status: Transfer Patient to floor
[2016-06-25] MEDS: ceFAZolin 2,000 MG in D5% in Water 100 ML IVPB SCH ×2 (00:27→07:42)
[2016-06-25 05:28] LABS: Hematocrit 28.2 % (35.3-44.9); Hemoglobin 9.2 g/dL (11.5-15.4)
[2016-06-25] MEDS ORDERED: *HR* Enoxaparin 30 MG/0.3 ML SYRINGE SQ SCH (06:00)
[2016-06-25] MEDS: 0.9 % Sodium Chloride 1,000 ML IVC SCH ×3 (06:33→20:35)
--- NOTE | 2016-06-25 06:56 | Orthopedics Progress Note ---
Date of Encounter: 06/25/16 Time of Encounter: 06:55 Subjective Interval history: Patient was seen this morning doing well without complaints. Afebrile vital signs stable. Operative extremity: Neurovascularly intact Dressing clean dry and intact Calves nontender Assessment and plan: Continue with postoperative care Ortho stable for discharge Objective Vital signs: Vital Signs Temp Pulse Resp BP Pulse Ox 06/25/16 03:24 99.8 F H 74 16 111/63 95 06/25/16 00:01 98.8 F 70 15 119/54 100 06/24/16 21:28 97.3 F L 64 16 115/64 99 06/24/16 20:54 97.9 F 64 16 101/63 100 06/24/16 20:15 97.7 F 61 16 108/64 100 06/24/16 17:15 71 14 126/58 99 06/24/16 17:00 77 14 129/62 99 06/24/16 14:34 98.3 F 79 18 149/71 99 06/24/16 11:00 98.4 F 75 16 106/51 95 06/24/16 07:56 98.6 F 75 16 117/71 97 Intake and Output 06/24/16 06/24/16 06/25/16 15:59 23:59 07:59 Intake Total 1000 / 1000 1600 / 1600 Output Total 800 / 800 300 / 300 500 / 500 Balance 200 / 200 -300 / -300 1100 / 1100 Intake: IV Fluids 1000 / 1000 1050 / 1050 0.9 % Sodium Chloride 1, 1000 / 1000 950 / 950 000 ML @ 125 mls/hr IVC . Q8H [facility] Rx#:[id number] Ancef 2,000 MG In 100 / 100 Dextrose 5% 100 ML @ 200 mls/hr IVPB Q8HR [facility] Rx#: [id number] Oral 550 / 550 Output: Urine 800 / 800 250 / 250 500 / 500 Estimated Blood Loss 50 / 50 Other: Meal NPO lunch NPO # Voids 1 Weight 93.984 kg Blood Glucose* 97 Patient Weight 06/25/16 23:59 Weight 93.984 kg - Labs CBC & BMP: 06/25/16 05:15 06/24/16 04:04 Labs: Abnormal lab results RBC 3.07 M/mcL (3.82-4.97) L 06/24/16 04:04 Hgb 9.2 g/dL (11.5-15.4) L 06/25/16 05:15 Hct 28.2 % (35.3-44.9) L 06/25/16 05:15 APTT 25.6 Seconds (26.0-36.0) L 06/23/16 10:48 BUN 25 mg/dL (7-20) H 06/24/16 04:04 Creatinine 1.20 mg/dL (0.57-1.11) H 06/24/16 04:04 Est GFR ( Amer) 52 (> 60) L 06/24/16 04:04 Est GFR (Non-Af Amer) 43 (> 60) L 06/24/16 04:04 Glucose 111 mg/dL (70-99) H 06/24/16 04:04 POC Glucose 97 (58-89) H 06/24/16 12:10 Calcium 8.0 mg/dL (8.6-10.8) L 06/24/16 04:04 Magnesium 1.4 mg/dL (1.6-2.6) L 06/24/16 04:04 - VTE Documentation of Mechanical Device: Graduated compression elastic hosiery Consult Discharge Plan - Plan Referrals: Cally Browne MD [Primary Care Provider] - Amaris Gusman, PAC [Physician Embossing Machine Operator Helper] - 07/02/16 8:00 am
[2016-06-25] MEDS: Cholecalciferol (D-3) 1,000 UNIT TABLET PO SCH (07:45)
[2016-06-25] MEDS: BuPROPion XL (24 HR) 150 MG TABLET PO SCH (07:45)
[2016-06-25] MEDS: amLODIPine 5 MG TABLET PO SCH (07:45)
[2016-06-25] MEDS: methylPREDNISolone 4 MG TABLET PO SCH (07:45)
[2016-06-25] MEDS: FLUoxetine 20 MG CAPSULE PO SCH ×2 (07:45→21:07)
[2016-06-25] MEDS: Aspirin Enteric Coated 81 MG Tablet PO SCH (07:46)
[2016-06-25] MEDS: Fenofibrate 54 MG TABLET PO SCH (07:46)
[2016-06-25] MEDS: Folic Acid 1 MG TABLET PO SCH (07:46)
[2016-06-25] MEDS: Multivit/Ca/Min/Fe/FA 1 TAB TABLET PO SCH (07:46)
[2016-06-25] MEDS: [UNRECOGNIZED DRUG - OTHER] PO SCH (07:47)
[2016-06-25] MEDS: CALCIUM CRB CIT PO SCH (07:47)
[2016-06-25] MEDS: D3 PO SCH (07:47)
[2016-06-25] MEDS ORDERED: Multivit/Ca/Min/Fe/FA 1 TAB TABLET PO SCH (09:00)
[2016-06-25] MEDS ORDERED: Folic Acid 1 MG TABLET PO SCH (09:00)
[2016-06-25] MEDS ORDERED: Aspirin Enteric Coated 81 MG Tablet PO SCH (09:00)
[2016-06-25] MEDS ORDERED: [UNRECOGNIZED DRUG - OTHER] PO SCH (09:00)
[2016-06-25] MEDS ORDERED: Cholecalciferol (D-3) 1,000 UNIT TABLET PO SCH (09:00)
[2016-06-25] MEDS ORDERED: amLODIPine 5 MG TABLET PO SCH (09:00)
[2016-06-25] MEDS ORDERED: Fenofibrate 54 MG TABLET PO SCH (09:00)
[2016-06-25] MEDS ORDERED: CALCIUM CRB CIT PO SCH (09:00)
[2016-06-25] MEDS ORDERED: D3 PO SCH (09:00)
[2016-06-25] MEDS ORDERED: methylPREDNISolone 4 MG TABLET PO SCH (09:00)
[2016-06-25] MEDS ORDERED: BuPROPion XL (24 HR) 150 MG TABLET PO SCH (09:00)
[2016-06-25] MEDS: Acetaminophen 325 MG TABLET PO PRN ×2 (12:58→19:48)
--- NOTE | 2016-06-25 14:24 | Internal Med Progress Note ---
Date of Encounter: 06/25/16 Time of Encounter: 14:23 - Assessment and plan (1) DVT prophylaxis Current Visit: Yes Status: Acute Assessment and plan: Subcutaneous Lovenox (2) Fracture, humerus closed, shaft Current Visit: Yes Status: Acute Assessment and plan: Patient had ORIF of the left humerus yesterday. She tolerated the procedure well. We will continue with intravenous morphine for pain. High risk for complications due to IV opiates. DVT prophylaxis with Lovenox Start PT/OT. Qualifiers: Encounter type: initial encounter Fracture morphology: transverse Fracture alignment: displaced Laterality: left Qualified Code(s): S42.322A - Displaced transverse fracture of shaft of humerus, left arm, initial encounter for closed fracture (3) Rheumatoid arthritis Current Visit: Yes Status: Chronic Assessment and plan: Will resume home medications for this condition. Patient is on Medrol, methotrexate Qualifiers: Rheumatoid arthritis location: multiple sites Rheumatoid factor presence: unspecified presence Qualified Code(s): M06.9 - Rheumatoid arthritis, unspecified (4) HTN (hypertension) Current Visit: Yes Status: Chronic Assessment and plan: I will hold her home amlodipine and losartan HCTZ as her blood pressure is on the low side. We will monitor. Qualifiers: Hypertension type: essential hypertension Qualified Code(s): I10 - Essential (primary) hypertension (5) CKD (chronic kidney disease) stage 3, GFR 30-59 ml/min Current Visit: Yes Status: Chronic Assessment and plan: Avoid nephrotoxins. Monitor GFR. (6) GERD with esophagitis Current Visit: Yes Status: Chronic Assessment and plan: Continue Prilosec - Subjective Interval history: Patient reports moderate to severe left arm pain with movement, patient is comfortable at rest. Denies associated numbness and tingling in the left hand. - Constitutional Vitals: Temp Pulse Resp BP Pulse Ox 100.4 F H 88 18 123/54 92 06/25/16 12:00 06/25/16 12:00 06/25/16 12:00 06/25/16 12:00 06/25/16 12:00 General appearance: Present: cooperative, mild distress, A&O X 3, pleasant, answers questions appropriately - Eye Eye exam: Present: PERRL, conjuntiva pink, sclera anicteric Pupils: Present: PERRL - Respiratory Respiratory exam: Present: CTAB. Absent: accessory muscle use, rales, rhonchi, wheezes - Cardiovascular Cardiovascular exam: Present: RRR, +S1, +S2. Absent: diastolic murmur, gallop, rubs, systolic murmur - Extremities Exam Additional comments: LUE cast, JANE swelling and bruise - Neurological Exam Neurological exam: Present: CN II-XII intact, oriented X3, no focal deficits. Absent: pronater drift, facial droop, speech deficit - Skin Skin exam: Present: dry, intact Internal Medicine: Result - Labs CBC & Chem 7: 06/25/16 05:15 06/24/16 04:04 Labs: Short CBC 06/25/16 Range/Units 05:15 Hgb 9.2 L (11.5-15.4) g/dL Hct 28.2 L (35.3-44.9) % - ABG Interpretation ABG results: PT/INR, D-dimer PT 10.5 Seconds (9.4-12.1) 06/23/16 10:48 - Impressions Impressions Humerus X-Ray 06/24/16 18:23 IMPRESSION: Open reduction and internal fixation of the fracture of the midshaft of the left humerus. Fracture alignment is satisfactory and the orthopedic hardware is in good position. D/ / Joe Leal MD / Joe Leal MD Interpreting Provider: Joe Leal MD Fluoroscopy 06/24/16 18:45 IMPRESSION: Open reduction and internal fixation of the fracture of the midshaft of the left humerus. Fracture alignment is satisfactory and the orthopedic hardware is in good position. D/ / Joe Leal MD / Joe Leal MD Interpreting Provider: Joe Leal MD - VTE Documentation of Mechanical Device: Graduated compression elastic hosiery Consult Discharge Plan - Plan Referrals: Cally Browne MD [Primary Care Provider] - Amaris Gusman PAC [Physician Room Service Bellhop] - 07/02/16 8:00 am
[2016-06-25] MEDS: *HR* OxyCODONE Immed Rel 5 MG TABLET PO PRN ×2 (18:10→22:53)
[2016-06-26] MEDS: *HR* OxyCODONE Immed Rel 5 MG TABLET PO PRN ×2 (03:48→08:29)
[2016-06-26 05:39] LABS: Basophils % 0.4 %; Eosinophils # 0.1 K/mcL (0.0-0.6); Hematocrit 26.4 % (35.3-44.9); Hemoglobin 8.7 g/dL (11.5-15.4); Immature Granulocytes % 0.4 % (0-4); Lymphocytes # 1.4 K/mcL (0.6-4.6); Mean Corpuscular Hemoglobin 31.4 pg (28.0-33.3); Mean Corpuscular Volume 95.3 fL (83.0-100.0); Mean Platelet Volume 9.9 fL (9.4-12.4); Monocytes # 1.1 K/mcL (0.0-1.3); Monocytes % 14.1 %; Neutrophils # 5.4 K/mcL (1.6-8.9); Platelet Count 136 K/mcL (140-400); Red Blood Count 2.77 M/mcL (3.82-4.97); Red Cell Distribution Width 13.5 % (11.5-14.5); Segmented Neutrophils % 67.1 %
[2016-06-26 05:47] LABS: BUN/Creatinine Ratio 11 (6-26); Carbon Dioxide 26 mEq/L (19-29); Chloride 107 mEq/L (98-109); Glucose 158 mg/dL (70-99); Osmolality,Calculated 287 (280-300); Potassium 3.9 mEq/L (3.5-4.5); Sodium 137 mEq/L (136-145); eGFR For African Americans > 60 (> 60); eGFR For Non-African Americans 51 (> 60)
[2016-06-26 05:49] LABS: Blood Urea Nitrogen 11 mg/dL (7-20)
[2016-06-26] MEDS ORDERED: *HR* Enoxaparin 40 MG/0.4 ML SYRINGE SQ SCH (06:00)
[2016-06-26 07:48] VITALS: BP 107/56
[2016-06-26] MEDS: amLODIPine 5 MG TABLET PO SCH (08:19)
[2016-06-26] MEDS: Cholecalciferol (D-3) 1,000 UNIT TABLET PO SCH (08:19)
[2016-06-26] MEDS: Multivit/Ca/Min/Fe/FA 1 TAB TABLET PO SCH (08:19)
[2016-06-26] MEDS: Aspirin Enteric Coated 81 MG Tablet PO SCH (08:20)
[2016-06-26] MEDS: FLUoxetine 20 MG CAPSULE PO SCH (08:20)
[2016-06-26] MEDS: Fenofibrate 54 MG TABLET PO SCH (08:20)
[2016-06-26] MEDS: Folic Acid 1 MG TABLET PO SCH (08:20)
[2016-06-26] MEDS: BuPROPion XL (24 HR) 150 MG TABLET PO SCH (08:21)
[2016-06-26] MEDS: methylPREDNISolone 4 MG TABLET PO SCH (08:21)
[2016-06-26] MEDS: CALCIUM CRB CIT PO SCH (08:22)
[2016-06-26] MEDS: D3 PO SCH (08:22)
[2016-06-26] MEDS: [UNRECOGNIZED DRUG - OTHER] PO SCH (08:22)
--- NOTE | 2016-06-26 10:13 | Discharge Summary ---
Date of Encounter: 06/26/16 Time of Encounter: 10:08 - Discharge Diagnosis (1) DVT prophylaxis Priority: Secondary Status: Acute (2) Fracture, humerus closed, shaft Priority: Primary Status: Acute Qualifiers: Encounter type: initial encounter Fracture morphology: transverse Fracture alignment: displaced Laterality: left Qualified Code(s): S42.322A - Displaced transverse fracture of shaft of humerus, left arm, initial encounter for closed fracture (3) Rheumatoid arthritis Priority: Secondary Status: Chronic Qualifiers: Rheumatoid arthritis location: multiple sites Rheumatoid factor presence: unspecified presence Qualified Code(s): M06.9 - Rheumatoid arthritis, unspecified (4) HTN (hypertension) Priority: Secondary Status: Chronic Qualifiers: Hypertension type: essential hypertension Qualified Code(s): I10 - Essential (primary) hypertension (5) CKD (chronic kidney disease) stage 3, GFR 30-59 ml/min Priority: Secondary Status: Chronic (6) GERD with esophagitis Priority: Secondary Status: Chronic (7) Postoperative anemia due to acute blood loss Priority: Secondary Status: Acute (8) Anemia, chronic disease Priority: Secondary Status: Chronic - Discharge Medications Prescriptions: OxyCODONE Immed Rel [Roxicodone 5 MG] 5 mg PO Q6HR PRN #30 tablet PRN Reason: Severe Pain Aspirin/Calcium Carbonate/Mag [Aspirin Buffered 325 mg Tab] 325 mg PO BID #60 tablet Docusate [Colace] 100 mg PO BID PRN #30 capsule PRN Reason: Constipation Omeprazole [PriLOSEC] 20 mg PO DAILY@0630 #30 capsule. Temazepam [Restoril] 15 mg PO HS PRN #14 capsule PRN Reason: Insomnia Home Medications: Amlodipine Besylate 5 mg PO DAILY 04/05/16 [History] BuPROPion XL (24 HR) [Wellbutrin Xl] 150 mg PO DAILY 04/05/16 [History] Calcium Crb,Cit/D3/Min34/Joleen [Citracal + Bone Density Tablet] 1 tab PO DAILY 04/05/16 [History] Cholecalciferol (Vitamin D3) [Vitamin D3] 3,000 unit PO DAILY 04/05/16 [History] Esomeprazole Magnesium [Nexium] 20 mg PO BID 04/05/16 [History] FLUoxetine HCl [Prozac] 20 mg PO BID 04/05/16 [History] Fenofibrate [Tricor] 145 mg PO DAILY 04/05/16 [History] Folic Acid 1 mg PO DAILY 04/05/16 [History] InFLIXimab [Remicade] 100 mg IV Q8W 04/05/16 [History] Methotrexate [Otrexup] 2.5 mg PO AD 04/05/16 [History] MethylPREDNISolone [Medrol] 2 mg PO DAILY 04/05/16 [History] Multivitamin [Multivitamins] 1 cap PO DAILY 04/05/16 [History] Potassium Chloride [Klor-Con] 20 meq PO DAILY 04/05/16 [History] Solifenacin Succinate [Vesicare] 5 mg PO DAILY 04/05/16 [History] Zolpidem [Ambien] 10 mg PO HS 04/05/16 [History] Losartan/Hydrochlorothiazide [Hyzaar 100-25 Tablet] 1 tab PO DAILY 06/23/16 [ History] Aspirin/Calcium Carbonate/Mag [Aspirin Buffered 325 mg Tab] 325 mg PO BID #60 tablet 06/26/16 [Rx] Docusate [Colace] 100 mg PO BID PRN #30 capsule 06/26/16 [Rx] Omeprazole [PriLOSEC] 20 mg PO DAILY@0630 #30 capsule. 06/26/16 [Rx] OxyCODONE Immed Rel [Roxicodone 5 MG] 5 mg PO Q6HR PRN #30 tablet 06/26/16 [Rx] Temazepam [Restoril] 15 mg PO HS PRN #14 capsule 06/26/16 [Rx] Allergies/Adverse Reactions: Allergies fluticasone [From Flonase] Allergy (Verified 11/07/14 11:29) Nose Bleed Minocycline [From Minocin] Allergy (Verified 11/07/14 11:29) Hives Sulfa (Sulfonamide Antibiotics) Allergy (Verified 11/07/14 11:29) Hives trazodone [From Desyrel] Allergy (Verified 11/07/14 11:29) Hives alendronate sodium [From Fosamax] Adverse Reaction (Verified 11/07/14 11:29) Gastrointestinal Upset celecoxib [From Celebrex] Adverse Reaction (Verified 11/07/14 11:29) Anxiety cyanocobalamin (vitamin B12) [From Foltx] Adverse Reaction (Verified 11/07/14 11 :29) Gastrointestinal Upset folic acid [From Foltx] Adverse Reaction (Verified 11/07/14 11:29) Gastrointestinal Upset levomefolate calcium [From Foltx] Adverse Reaction (Verified 11/07/14 11:29) Gastrointestinal Upset pyridoxine [From Foltx] Adverse Reaction (Verified 11/07/14 11:29) Gastrointestinal Upset Date of admission: 06/23/16 11:52 Primary care physician: Cally Browne Consults: 06/24/16 20:03 Consult to Occupational Therapy [CONS] Routine Comment: post shoulder surgery Consult to Physical Therapy [CONS] Routine Comment: post shoulder surgery RT Post Op Consult [CONS] Routine 06/26/16 09:59 Consult to Television Installer [CONS] Routine Reason for SW Consult: discharge planning - Patient Status Disposition: Home, Self-Care Condition: Good Functional capacity at discharge: independent ambulation Overall status at discharge: patient is not back to baseline - Discharge Instructions Follow Up With: Cally Browne MD [Primary Care Provider] - Amaris Gusman PAC [Physician Python Architect] - 07/02/16 8:00 am - Diet and Activity Activity: as per physical therapy Diet: advance to your usual diet, low salt diet Hospital course: Ms. Gudino is a 81 year old female with hx of rheumatoid arthritis brought to ED by EMS after a fall. She was going up the steps at [employer] and missed the top step and fell on her L side. She had pain in her L arm and was found to have a humeral fracture. She was admitted to the medical service and orthopedic service was consulted. She had a successful open reduction and internal fixation of the left humerus fracture on day 2 of hospitalization. She tolerated this procedure well. Currently she continues to have moderate pain in the left arm which is controlled with oxycodone. She was evaluated by physical therapy and occupational therapy and deemed safe for discharge home with home health. This morning she has been able to sit up in bed and eat breakfast. She denies nausea and abdominal pain. She received DVT prophylaxis with Lovenox and upon discharge home this will be changed to aspirin 325 mg oral twice a day. She will be prescribed oral Protonix for GI prophylaxis given the higher NSAID dose. She will be discharged home with family support to assisted living. She would prefer to go to subacute rehabilitation. She was evaluated by case management and was advised that she did not qualify for halfway facility due to her higher functional status. She was offered home health but she refused this because she stated that she would not be able to go to [facility] if she had home health. She is currently medically stable for discharge home. - Time Spent with Patient Total time spent providing and/or coordinating discharge services: - Constitutional Vitals: Temp Pulse Resp BP Pulse Ox 98.9 F 77 14 107/56 93 06/26/16 07:39 06/26/16 07:39 06/26/16 07:39 06/26/16 07:39 06/26/16 07:39 General appearance: Present: cooperative, mild distress, A&O X 3, pleasant, answers questions appropriately - Neck Neck exam general surgery: Present: supple, trachea midline. Absent: lymphadenopathy - Respiratory Respiratory exam: Present: CTAB. Absent: accessory muscle use, rales, rhonchi, wheezes - Cardiovascular Cardiovascular exam: Present: RRR, +S1, +S2. Absent: diastolic murmur, gallop, rubs, systolic murmur - Extremities Exam Additional comments: Left upper extremity is in a cast, left shoulder with mild bruising and left upper extremity edema and postop changes. - VTE Documentation of Mechanical Device: Graduated compression elastic hosiery
--- NOTE | 2016-06-26 11:37 | Physician Discharge Referral ---
Home Health/Hosp Referral Info Transfer to: Home Health Provider in Charge Post Discharge: PCP - Diagnosis (1) DVT prophylaxis Status: Acute (2) Fracture, humerus closed, shaft Status: Acute (3) Rheumatoid arthritis Status: Chronic (4) HTN (hypertension) Status: Chronic (5) CKD (chronic kidney disease) stage 3, GFR 30-59 ml/min Status: Chronic (6) GERD with esophagitis Status: Chronic (7) Postoperative anemia due to acute blood loss Status: Acute (8) Anemia, chronic disease Status: Chronic - Respiratory Orders Smoking Cessation: Smoking cessation has been advised. For more information, call the [place] Tobacco Quit Line at 6-029-GYIO-NOW. - Diet/Nutrition Diet/Nutrition Orders: Cardiac - Activity Activity Orders: Ambulate - Services Needed Following services are medically necessary services: Nursing, Physical Therapy, Occupational Therapy - Transfer Medications Prescriptions: OxyCODONE Immed Rel [Roxicodone 5 MG] 5 mg PO Q6HR PRN #30 tablet PRN Reason: Severe Pain Aspirin/Calcium Carbonate/Mag [Aspirin Buffered 325 mg Tab] 325 mg PO BID #60 tablet Docusate [Colace] 100 mg PO BID PRN #30 capsule PRN Reason: Constipation Omeprazole [PriLOSEC] 20 mg PO DAILY@0630 #30 capsule. Temazepam [Restoril] 15 mg PO HS PRN #14 capsule PRN Reason: Insomnia Home Medications: Amlodipine Besylate 5 mg PO DAILY 04/05/16 [History] BuPROPion XL (24 HR) [Wellbutrin Xl] 150 mg PO DAILY 04/05/16 [History] Calcium Crb,Cit/D3/Min34/Joleen [Citracal + Bone Density Tablet] 1 tab PO DAILY 04/05/16 [History] Cholecalciferol (Vitamin D3) [Vitamin D3] 3,000 unit PO DAILY 04/05/16 [History] Esomeprazole Magnesium [Nexium] 20 mg PO BID 04/05/16 [History] FLUoxetine HCl [Prozac] 20 mg PO BID 04/05/16 [History] Fenofibrate [Tricor] 145 mg PO DAILY 04/05/16 [History] Folic Acid 1 mg PO DAILY 04/05/16 [History] InFLIXimab [Remicade] 100 mg IV Q8W 04/05/16 [History] Methotrexate [Otrexup] 2.5 mg PO AD 04/05/16 [History] MethylPREDNISolone [Medrol] 2 mg PO DAILY 04/05/16 [History] Multivitamin [Multivitamins] 1 cap PO DAILY 04/05/16 [History] Potassium Chloride [Klor-Con] 20 meq PO DAILY 04/05/16 [History] Solifenacin Succinate [Vesicare] 5 mg PO DAILY 04/05/16 [History] Zolpidem [Ambien] 10 mg PO HS 04/05/16 [History] Losartan/Hydrochlorothiazide [Hyzaar 100-25 Tablet] 1 tab PO DAILY 06/23/16 [ History] Aspirin/Calcium Carbonate/Mag [Aspirin Buffered 325 mg Tab] 325 mg PO BID #60 tablet 06/26/16 [Rx] Docusate [Colace] 100 mg PO BID PRN #30 capsule 06/26/16 [Rx] Omeprazole [PriLOSEC] 20 mg PO DAILY@0630 #30 capsule. 06/26/16 [Rx] OxyCODONE Immed Rel [Roxicodone 5 MG] 5 mg PO Q6HR PRN #30 tablet 06/26/16 [Rx] Temazepam [Restoril] 15 mg PO HS PRN #14 capsule 06/26/16 [Rx] Allergies/Adverse Reactions: Allergies fluticasone [From Flonase] Allergy (Verified 11/07/14 11:29) Nose Bleed Minocycline [From Minocin] Allergy (Verified 11/07/14 11:29) Hives Sulfa (Sulfonamide Antibiotics) Allergy (Verified 11/07/14 11:29) Hives trazodone [From Desyrel] Allergy (Verified 11/07/14 11:29) Hives alendronate sodium [From Fosamax] Adverse Reaction (Verified 11/07/14 11:29) Gastrointestinal Upset celecoxib [From Celebrex] Adverse Reaction (Verified 11/07/14 11:29) Anxiety cyanocobalamin (vitamin B12) [From Foltx] Adverse Reaction (Verified 11/07/14 11 :29) Gastrointestinal Upset folic acid [From Foltx] Adverse Reaction (Verified 11/07/14 11:29) Gastrointestinal Upset levomefolate calcium [From Foltx] Adverse Reaction (Verified 11/07/14 11:29) Gastrointestinal Upset pyridoxine [From Foltx] Adverse Reaction (Verified 11/07/14 11:29) Gastrointestinal Upset Certification: Further, I certify that my clinical findings support that this patient is homebound (i.e. absences from home require considerable and taxing effort and are for medical reasons or buddhist services or infrequently or short duration when for other reasons) because: Homebound Reason: Patient requires assistance of a person or device to safely leave home, Post-surgery restriction and or conditions limit ability to leave home, Leaving home requires considerable and taxing effort due to condition Attestation: My signature below is to certify that this patient is under my care and that I, or nurse practitioner, or a physician's financial administrative assistant working with me, has a face-to -face encounter with this patient.
== END 2016-06-26 12:30 | disposition home health service (06) | DRG 493 ==
LOC: 3ANU 09:26 → EMEROO 09:26 → SUATTDRO 11:52 → 3ANU 12:06
PROVIDERS: ADMIT Internal Medicine; ATTEND Internal Medicine